=== PATIENT | male | born 1995 | race Caucasian/White ===

== ENCOUNTER 2017-06-26 08:45 | Emergency (ER) | payer SELFPAY ==
[~2017-06-26] VITALS: Ht 162.6 cm; Wt 50.8 kg
[2017-06-26 08:52] VITALS: BP 115/64
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
--- NOTE | 2017-06-26 09:39 | RAD ---
CT maxillofacial without contrast 06/26/2017 Indication: Pain to the right jaw. Comparison: None. Technique: CT helical acquisition of the maxillofacial region without intravenous contrast was obtained. Coronal and sagittal reformations were obtained. PQRS Compliance Statement: One or more of the following individualized dose reduction techniques were utilized for this examination: 1. Automated exposure control 2. Adjustment of the mA and/or kV according to patient size 3. Use of iterative reconstruction technique Findings: No acute maxillofacial fracture or dislocation. The maxillary sinus valdes, globes and orbits, zygomatic arch, pterygoid plates, nasal bones and mandible are within normal limits. There is opacification of a left anterior ethmoid air cell. Otherwise the visualized mastoid air cells and paranasal sinuses are well aerated. Impression: 1. No acute maxillofacial fracture. 2. Opacification of a left anterior ethmoid air cell, may represent minimal paranasal sinus disease.
[2017-06-26] MEDS ORDERED: DIPHTH,PERTUSS(ACELL),TET TOX 0.5 ML DISP.SYRIN. VAX IM ONE (09:45)
[2017-06-26] MEDS ORDERED: ACETAMINOPHEN/CODEINE 300/30MG TABLET. PO ONE (09:45)
[2017-06-26] MEDS ORDERED: CYCLOBENZAPRINE 10 MG TABLET. PO ONE (09:45)
[2017-06-26] MEDS ORDERED: NAPR500T8 PO (09:57)
[2017-06-26] MEDS ORDERED: CYCL10TA2 PO (09:57)
[2017-06-26] MEDS ORDERED: AMOX1TAB61 PO (09:57)
== END 2017-06-26 10:03 | disposition home or self-care (01) ==
LOC: ER 08:45
DX: S00.33XA Contusion of nose, initial encounter (principal); J01.90 Acute sinusitis, unspecified; R22.0 Localized swelling, mass and lump, head; F12.10 Cannabis abuse, uncomplicated; Y04.0XXA Assault by unarmed brawl or fight, initial encounter; Y93.89 Activity, other specified; Y99.8 Other external cause status; Y92.89 Other specified places as the place of occurrence of the external cause
CPT/HCPCS: 70486; 90471; 90715; 99284-25